=== PATIENT | male | born 1975 | race Hispanic/Latino ===

== ENCOUNTER 2018-11-15 00:12 | Emergency (ER) | payer SELFPAY ==
[2018-11-15 03:44] LABS: Absolute Lymphocytes (CBC) 1.6 K/uL (0.7-4.9); Absolute Monocytes 1.3 K/uL (0.1-1.3); Basophils % 0.9 % (0-1.3); Eosinophils % 2.6 % (0-4.4); Hematocrit 45.5 % (39.6-49.0); MPV 6.7 fL (7.6-11.3)
--- NOTE | 2018-11-15 03:55 | EDPHYS ---
Physician Documentation [facility] Name: Aram Tillman Age: 43 yrs Sex: Male : 1975 Arrival Date: 11/15/2018 Time: 00:16 Bed 6 Private MD: None, None ED Physician Harris Santiago HPI: 11/15 01:43 This 43 yrs old Male presents to ER via Ambulatory with complaints of Cough, pkl Fever, Breathing Difficulty. 01:43 The patient or guardian reports cough, with productive sputum, that is yellow. Onset: pkl The symptoms/episode began/occurred 1 week(s) ago. Associated signs and symptoms: Pertinent positives: fever, sore throat. Historical: - Allergies: 00:38 No Known Allergies; lp1 - Home Meds: 00:38 None [Active]; lp1 - PMHx: 00:38 None; lp1 - PSHx: 00:38 None; lp1 - Immunization history:: Adult Immunizations up to date. - Social history:: Smoking status: Patient/guardian denies using tobacco. - Ebola Screening: : No symptoms or risks identified at this time. ROS: 01:43 Eyes: Negative for injury, pain, redness, and discharge. pkl 01:43 ENT: Positive for sore throat. 01:43 Neck: Negative for stiffness. 01:43 Cardiovascular: Negative for chest pain. 01:43 Respiratory: Positive for cough, with yellow sputum, shortness of breath. 01:43 Abdomen/GI: Negative for abdominal pain, nausea, vomiting, and diarrhea. 01:43 Back: Negative for pain at rest. 01:43 : Negative for urinary symptoms. 01:43 MS/extremity: Negative for acute changes. 01:43 Skin: Negative for rash. 01:43 Neuro: Negative for altered mental status. Exam: 01:43 Head/Face: Normocephalic, atraumatic. Eyes: Pupils equal round and reactive to light, pkl extra-ocular motions intact. Lids and lashes normal. Conjunctiva and sclera are non-icteric and not injected. Cornea within normal limits. Periorbital areas with no swelling, redness, or edema. 01:43 ENT: Posterior pharynx: erythema, that is mild. 01:43 Neck: Exam negative for nuchal rigidity. 01:43 Chest/axilla: Exam negative for acute changes. 01:43 Cardiovascular: Rate: normal, Rhythm: regular. 01:43 Respiratory: the patient does not display signs of respiratory distress, Respirations: normal, Breath sounds: are clear throughout. 01:43 Abdomen/GI: Bowel sounds: normal, Palpation: abdomen is soft and non-tender, in all quadrants. 01:43 Back: Exam negative for acute changes. 01:43 : Exam negative for acute changes. 01:43 Musculoskeletal/extremity: Exam is negative for acute changes. 01:43 Skin: Exam negative for rash. 01:43 Neuro: Orientation: is normal, Mentation: is normal, Cranial nerves: grossly normal, Motor: is normal. Vital Signs: 00:38 BP 122 / 92; Pulse 90; Resp 18; Temp 98.6(O); Pulse Ox 97% on R/A; Weight 93.89 kg; lp1 Height 5 ft. 7 in. (170.18 cm); Pain 0/10; 01:50 BP 133 / 80; Pulse 90; Resp 18; Pulse Ox 98% on R/A; ea 02:50 BP 125 / 78; Pulse 88; Resp 18; Pulse Ox 98% on R/A; ea 03:50 BP 144 / 83; Pulse 96; Resp 18; Pulse Ox 98% on R/A; ea 00:38 Body Mass Index 32.42 (93.89 kg, 170.18 cm) lp1 MDM: 01:38 Patient medically screened. pkl 03:50 Data reviewed: vital signs, nurses notes, lab test result(s), WBC 13.4, radiologic pkl studies, plain films. 11/15 00:35 Order name: Flu; Complete Time: 02:54 lp1 11/15 00:35 Order name: Strep; Complete Time: 02:54 lp1 11/15 00:35 Order name: XRAY Chest Pa And Lat (2 Views) lp1 11/15 01:42 Order name: CBC with Diff pkl 11/15 01:43 Order name: CBC with Automated Diff; Complete Time: 03:50 EDMS 11/15 01:53 Order name: Throat Culture EDMS 11/15 02:07 Order name: Labs - recollect needed; Complete Time: 02:28 ms Administered Medications: 04:00 Drug: Augmentin 875 mg Route: PO; ea 04:00 Follow up: Response: No adverse reaction ea Disposition: 11/15/18 03:54 Discharged to Home. Impression: Fever. Persistent cough. Leukocytosis. Possible pneumonia. - Condition is Stable. - Prescriptions for Augmentin 875- 125 mg Oral Tablet - take 1 tablet by ORAL route every 12 hours for 7 days; 14 tablet. Guaifenesin AC 10- 100 mg/5 mL Oral Liquid - take 10 milliliters by ORAL route every 8 hours As needed; 120 milliliter. - Medication Reconciliation Form, Thank You Letter, Antibiotic Education, Prescription Opioid Use, Work release form form. - Follow up: Private Physician; When: 2 - 3 days; Reason: Re-evaluation by your physician. - Problem is new. - Symptoms are unchanged. Signatures: Dispatcher [employer] EDHarris Vernon MD MD pkl Michaelle Mackenzie ms, Laura, RN RN lp1 Yen Lopez RN RN ea Corrections: (The following items were deleted from the chart) 04:18 03:54 11/15/2018 03:54 Discharged to Home. Impression: Fever. Persistent cough. ea Leukocytosis. Possible pneumonia. Condition is Stable. Forms are Medication Reconciliation Form, Thank You Letter, Antibiotic Education, Prescription Opioid Use. Follow up: Private Physician; When: 2 - 3 days; Reason: Re-evaluation by your physician. Problem is new. Symptoms are unchanged. pkl
--- NOTE | 2018-11-15 03:55 | ER ---
Nurse's Notes [facility] Name: Aram Tillman Age: 43 yrs Sex: Male : 1975 Arrival Date: 11/15/2018 Time: 00:16 Bed 6 Private MD: None, None Diagnosis: Fever. Persistent cough. Leukocytosis. Possible pneumonia Presentation: 11/15 00:37 Presenting complaint: Patient states: Productive cough, shortness of breath, fever x 1 lp1 week with no improvement. Transition of care: patient was not received from another setting of care. Onset of symptoms was November 15, 2018. Risk Assessment: Do you want to hurt yourself or someone else? Patient reports no desire to harm self or others. Initial Sepsis Screen: Does the patient meet any 2 criteria? No. Patient's initial sepsis screen is negative. Does the patient have a suspected source of infection? No. Patient's initial sepsis screen is negative. Care prior to arrival: None. 00:37 Method Of Arrival: Ambulatory lp1 00:37 Acuity: AYAD 4 lp1 Triage Assessment: 03:55 General: Appears in no apparent distress. Behavior is calm, cooperative, appropriate ak1 for age. 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 Historical: - Allergies: 00:38 No Known Allergies; lp1 - Home Meds: 00:38 None [Active]; lp1 - PMHx: 00:38 None; lp1 - PSHx: 00:38 None; lp1 - Immunization history:: Adult Immunizations up to date. - Social history:: Smoking status: Patient/guardian denies using tobacco. - Ebola Screening: : No symptoms or risks identified at this time. Screenin:39 Abuse screen: Denies threats or abuse. Denies injuries from another. Nutritional lp1 screening: No deficits noted. Tuberculosis screening: No symptoms or risk factors identified. Fall Risk None identified. Assessment: 01:34 General: Appears in no apparent distress. Behavior is calm, cooperative, appropriate ea for age. Pain: Denies pain. Neuro: Level of Consciousness is awake, alert, obeys commands, Oriented to person, place, time, situation. Cardiovascular: Patient's skin is warm and dry. Respiratory: Airway is patent Respiratory effort is even, unlabored, Respiratory pattern is regular, symmetrical, Breath sounds with rhonchi. GI: Abdomen is non-distended. Derm: Skin is pink, warm \T\ dry. 02:50 Reassessment: Patient and/or family updated on plan of care and expected duration. Pain ea level reassessed. Patient is alert, oriented x 3, equal unlabored respirations, skin warm/dry/pink. 03:00 Reassessment: Patient and/or family updated on plan of care and expected duration. Pain ea level reassessed. Patient is alert, oriented x 3, equal unlabored respirations, skin warm/dry/pink. awaiting on lab results. 04:16 Reassessment: Patient and/or family updated on plan of care and expected duration. Pain ea level reassessed. Patient is alert, oriented x 3, equal unlabored respirations, skin warm/dry/pink. Discharge instructions given to patient, verbalized the understanding of instruction. Vital Signs: 00:38 BP 122 / 92; Pulse 90; Resp 18; Temp 98.6(O); Pulse Ox 97% on R/A; Weight 93.89 kg; lp1 Height 5 ft. 7 in. (170.18 cm); Pain 0/10; 01:50 BP 133 / 80; Pulse 90; Resp 18; Pulse Ox 98% on R/A; ea 02:50 BP 125 / 78; Pulse 88; Resp 18; Pulse Ox 98% on R/A; ea 03:50 BP 144 / 83; Pulse 96; Resp 18; Pulse Ox 98% on R/A; ea 00:38 Body Mass Index 32.42 (93.89 kg, 170.18 cm) lp1 ED Course: 00:16 Patient arrived in ED. mr 00:16 None, None is Private Physician. mr 00:38 Triage completed. lp1 00:39 Arm band placed on right wrist. lp1 00:41 Flu and/or RSV swab sent to lab. Strep swab sent to lab. lp1 01:27 Yen Lopez RN is Primary Nurse. ea 01:33 Patient has correct armband on for positive identification. Bed in low position. Call ea light in reach. Side rails up X2. 01:38 Harris Santiago MD is Attending Physician. pkl 01:48 XRAY Chest Pa And Lat (2 Views) In Process Unspecified. EDMS 02:00 Inserted saline lock: 20 gauge in left antecubital area, using aseptic technique. ea 03:00 CBC with Diff Sent. ea 04:02 No provider procedures requiring assistance completed. ea 04:17 IV discontinued, intact, bleeding controlled, No redness/swelling at site. Pressure ea dressing applied. Administered Medications: 04:00 Drug: Augmentin 875 mg Route: PO; ea 04:00 Follow up: Response: No adverse reaction ea Outcome: 03:54 Discharge ordered by . vega 04:17 Discharged to home ambulatory, with significant other. ea 04:17 Condition: good 04:17 Discharge instructions given to patient, Instructed on discharge instructions, follow up and referral plans. medication usage, Demonstrated understanding of instructions, follow-up care, medications, Prescriptions given X 1. 04:18 Patient left the ED. ea Signatures: Dispatcher [employer] EDHarris Vernon MD MD pkl Rivera, Mary Alison Reid, RN RN lp1 Summer Arora RN RN ak1 Yen Lopez RN RN den
[2018-11-15] MEDS ORDERED: AMOX/K CLAV 875 MG TAB ONE (04:11)
--- NOTE | 2018-11-15 08:15 | RAD REPORT ---
EXAM DESCRIPTION: Jenae Smith (2 Views)11/15/2018 1:48 am CLINICAL HISTORY: Cough COMPARISON: None FINDINGS: The lungs appear clear of acute infiltrate. The heart is normal size IMPRESSION: No acute abnormalities displayed
== END 2018-11-15 04:18 | disposition home or self-care (01) ==
LOC: ER 00:12
DX: R05 Cough (principal); D72.829 Elevated white blood cell count, unspecified
CPT/HCPCS: 36415; 71046; 85025; 87070; 87081; 87804; 99284